=== PATIENT | male | born 1975 | race Caucasian/White ===

== ENCOUNTER → 2017-03-14 | Outpatient (CLI) | payer MEDICARE ==
[~2017-03-14] MED LIST: ANTIVERT25 MG PO; ASPI-COR81 M1 PO; BACTRIM DS 8001 TA1 PO; BENZTROPINE2 MG PO; BIAXIN500 MG PO; CITALOPRAM40 MG PO; FLEXERIL5 MG PO; HYDR25T PO; HYDROCODONE BIT1 T11 PO; LISINOPRIL20 MG PO; Lopressor25 MG PO; MEDROL DOSEPAK4 MG PO; MOTRIN800 MG PO; NEXIUM20 MG PO; NORCO 325 MG-51 TAB PO; PEN-VEE K500 MG PO; PREDNICOT20 MG PO; PREDNISONE10 MG PO; PRILOSEC40 MG PO; PROVENTIL0.09 MG/AC IH; QUETIAPINE FUM100 M2 PO; SEROQUEL100 MG PO; SYMBICORT1 AE1 INH; TOBRADEX 0.1%-0.5 ML OPH; ULTRAM50 MG PO; VICODIN ES 7501 TAB PO; VIIBRYD40 PO; ZITHROMAX500 MG PO
== END | disposition home or self-care (01) ==
LOC: CARD 13:02
DX: E11.65 Type 2 diabetes mellitus with hyperglycemia (principal); I10 Essential (primary) hypertension; J44.9 Chronic obstructive pulmonary disease, unspecified; R05 Cough; F17.200 Nicotine dependence, unspecified, uncomplicated; R06.02 Shortness of breath

== ENCOUNTER 2017-05-06 18:52 | Emergency (ER) | payer MEDICARE | END 2017-05-06 19:16 | disposition home or self-care (01) | LOC: ED 18:52 | DX: H10.32 Unspecified acute conjunctivitis, left eye (principal); F17.200 Nicotine dependence, unspecified, uncomplicated ==

== ENCOUNTER → 2017-06-14 | Outpatient (CLI) | payer MEDICARE | END | disposition home or self-care (01) | LOC: WOUNDCARE 02:19 | DX: E11.628 Type 2 diabetes mellitus with other skin complications (principal); L02.412 Cutaneous abscess of left axilla; J86.9 Pyothorax without fistula; L02.214 Cutaneous abscess of groin; L02.811 Cutaneous abscess of head [any part, except face]; I10 Essential (primary) hypertension; K21.9 Gastro-esophageal reflux disease without esophagitis; F41.9 Anxiety disorder, unspecified; G47.00 Insomnia, unspecified; F32.9 Major depressive disorder, single episode, unspecified; E66.9 Obesity, unspecified; F17.200 Nicotine dependence, unspecified, uncomplicated; Z72.89 Other problems related to lifestyle; Z86.14 Personal history of Methicillin resistant Staphylococcus aureus infection ==

== ENCOUNTER → 2017-06-28 | Outpatient (CLI) | payer MEDICARE | LOC: WOUNDCARE 03:04 | DX: L02.412 Cutaneous abscess of left axilla (principal); E66.9 Obesity, unspecified; E11.628 Type 2 diabetes mellitus with other skin complications; Z86.14 Personal history of Methicillin resistant Staphylococcus aureus infection ==

== ENCOUNTER → 2019-02-13 | Outpatient (CLI) | payer MEDICARE ==
[2019-02-13 10:24] LABS: HEMATOCRIT 61.2 % (42.0-52.0); HEMOGLOBIN 20.2 g/dl (14.0-18.0)
[2019-02-13 10:30] VITALS: BP 141/85
[2019-02-13 11:00] VITALS: BP 124/75
== END | disposition home or self-care (01) ==
LOC: PHLEB 03:23
PROVIDERS: Physician Assistant
DX: D75.1 Secondary polycythemia (principal)

== ENCOUNTER → 2021-03-08 | Outpatient (CLI) | payer MEDICARE ==
[2021-03-08 09:14] LABS: HEMATOCRIT 58.4 % (42.0-52.0)
[2021-03-08 09:39] VITALS: BP 158/88
[2021-03-08 10:03] VITALS: BP 129/85
== END | disposition home or self-care (01) ==
LOC: LAB 08:57 → PHLEB 09:00
PROVIDERS: ATTEND Physician Assistant
DX: D75.1 Secondary polycythemia (principal)

== ENCOUNTER → 2022-09-13 | Outpatient (CLI) | payer MEDICARE, MEDICAID | END | disposition home or self-care (01) | LOC: RAD 12:20 | PROVIDERS: ATTEND Nurse Practitioner Family | DX: J44.1 Chronic obstructive pulmonary disease with (acute) exacerbation (principal); I10 Essential (primary) hypertension; E11.9 Type 2 diabetes mellitus without complications; R05.9 Cough, unspecified; D75.1 Secondary polycythemia; Z87.891 Personal history of nicotine dependence ==

== ENCOUNTER → 2023-10-01 | Outpatient (CLI) | payer MEDICARE, MEDICAID ==
[2023-10-01 14:30] LABS: BASO % 0.5 % (0.0-1.0); EOS # 0.3 10*3/uL (0.0-0.4); EOS % 4.8 % (1.0-4.0); HEMATOCRIT 51.1 % (42.0-52.0); LYMPH # 2.1 10*3/uL (1.3-4.4); LYMPH % 33.1 % (27.0-41.0); MEAN CELL VOLUME 95.7 fl (80.0-94.0); MEAN CORPUSCULAR HGB 31.8 pg (27.0-31.0); MEAN CORPUSCULAR HGB CONC 33.3 g/dl (33.0-37.0); MEAN PLATELET VOLUME 8.9 fl (9.6-12.3); MONO # 0.5 10*3/uL (0.1-1.0); MONO % 8.5 % (3.0-9.0); NEUT # 3.3 10*3/uL (2.3-7.9); NEUT % 52.9 % (47.0-73.0); PLATELET COUNT AUTOMATED 215 10*3/uL (130-400); RED BLOOD COUNT 5.34 10*6/uL (4.50-5.90); RED CELL DISTRI WIDTH 12.9 % (0-14.5); WHITE BLOOD COUNT 6.3 10*3/uL (4.8-10.8)
[2023-10-01 14:51] LABS: ALKALINE PHOSPHATASE 123 U/L (46-116); CHLORIDE 107 mmol/L (98-107); CHOLESTEROL 145 mg/dL (<200); LDL CHOLESTEROL 85 mg/dL (9-159); POTASSIUM 4.2 mmol/L (3.4-5.1); TOTAL PROTEIN 6.8 gm/dL (6.0-8.0); TRIGLYCERIDES 68 mg/dl (<150)
[2023-10-01 14:53] LABS: BUN < 5 mg/dl (9-23); SGPT/ALT < 7 U/L (5-49)
== END | disposition home or self-care (01) ==
LOC: LAB 14:13
PROVIDERS: ATTEND Nurse Practitioner Family
DX: I10 Essential (primary) hypertension (principal); E11.9 Type 2 diabetes mellitus without complications; E78.5 Hyperlipidemia, unspecified; D75.1 Secondary polycythemia; Z72.0 Tobacco use

== ENCOUNTER → 2024-04-11 | Outpatient (CLI) | payer OTHER, MEDICAID ==
[2024-04-11 09:35] LABS: BASO % 0.2 % (0.0-1.0); EOS % 0.3 % (1.0-4.0); HEMATOCRIT 53.3 % (42.0-52.0); LYMPH # 1.2 10*3/uL (1.3-4.4); LYMPH % 18.9 % (27.0-41.0); MEAN CORPUSCULAR HGB 30.7 pg (27.0-31.0); MEAN CORPUSCULAR HGB CONC 32.3 g/dl (33.0-37.0); MEAN PLATELET VOLUME 9.6 fl (9.6-12.3); MONO # 0.3 10*3/uL (0.1-1.0); MONO % 5.6 % (3.0-9.0); NEUT # 4.6 10*3/uL (2.3-7.9); NEUT % 74.8 % (47.0-73.0); PLATELET COUNT AUTOMATED 214 10*3/uL (130-400); RED BLOOD COUNT 5.61 10*6/uL (4.50-5.90); RED CELL DISTRI WIDTH 13.2 % (0-14.5); WHITE BLOOD COUNT 6.1 10*3/uL (4.8-10.8)
[2024-04-11 10:03] LABS: URINE CREATININE RANDOM 84.18 mg/dL
[2024-04-11 10:46] LABS: ALKALINE PHOSPHATASE 128 U/L (46-116); BUN 9 mg/dl (9-23); CHLORIDE 106 mmol/L (98-107); CHOLESTEROL 178 mg/dL (<200); LDL CHOLESTEROL 117 mg/dL (9-159); POTASSIUM 4.6 mmol/L (3.4-5.1); TOTAL PROTEIN 7.1 gm/dL (6.0-8.0); TRIGLYCERIDES 60 mg/dl (<150)
[2024-04-11 10:47] LABS: SGPT/ALT < 7 U/L (5-49)
== END ==
LOC: LAB 08:50
PROVIDERS: ATTEND Nurse Practitioner Family
DX: I10 Essential (primary) hypertension (principal); E11.9 Type 2 diabetes mellitus without complications; D75.1 Secondary polycythemia; N52.9 Male erectile dysfunction, unspecified; E78.5 Hyperlipidemia, unspecified; Z72.0 Tobacco use

== ENCOUNTER → 2024-07-14 | Outpatient (CLI) | payer OTHER, MEDICAID ==
[2024-07-14 13:48] LABS: BASO % 0.7 % (0.0-1.0); EOS # 0.3 10*3/uL (0.0-0.4); EOS % 4.9 % (1.0-4.0); LYMPH # 2.1 10*3/uL (1.3-4.4); LYMPH % 33.8 % (27.0-41.0); MEAN CELL VOLUME 95.4 fl (80.0-94.0); MEAN CORPUSCULAR HGB 30.4 pg (27.0-31.0); MEAN CORPUSCULAR HGB CONC 31.9 g/dl (33.0-37.0); MEAN PLATELET VOLUME 9.3 fl (9.6-12.3); MONO # 0.5 10*3/uL (0.1-1.0); MONO % 8.2 % (3.0-9.0); NEUT # 3.2 10*3/uL (2.3-7.9); NEUT % 52.2 % (47.0-73.0); PLATELET COUNT AUTOMATED 196 10*3/uL (130-400); RED BLOOD COUNT 5.66 10*6/uL (4.50-5.90); RED CELL DISTRI WIDTH 13.4 % (0-14.5); WHITE BLOOD COUNT 6.1 10*3/uL (4.8-10.8)
[2024-07-14 13:59] LABS: URINE CREATININE RANDOM 143.59 mg/dL
[2024-07-14 14:32] LABS: ALKALINE PHOSPHATASE 144 U/L (46-116); BUN 7 mg/dl (9-23); CHLORIDE 102 mmol/L (98-107); CHOLESTEROL 148 mg/dL (<200); LDL CHOLESTEROL 85 mg/dL (9-159); POTASSIUM 4.3 mmol/L (3.4-5.1); SGPT/ALT 10 U/L (5-49); TRIGLYCERIDES 90 mg/dl (<150)
== END | disposition home or self-care (01) ==
LOC: LAB 13:23
PROVIDERS: ATTEND Nurse Practitioner Family
DX: I10 Essential (primary) hypertension (principal); E11.9 Type 2 diabetes mellitus without complications

== ENCOUNTER → 2024-07-16 | Outpatient (CLI) | payer OTHER, MEDICAID | END | disposition home or self-care (01) | LOC: RAD 15:10 | PROVIDERS: ATTEND Nurse Practitioner Family | DX: M47.816 Spondylosis without myelopathy or radiculopathy, lumbar region (principal); J44.1 Chronic obstructive pulmonary disease with (acute) exacerbation; M54.50 Low back pain, unspecified; Z72.0 Tobacco use; L02.91 Cutaneous abscess, unspecified ==

== ENCOUNTER → 2024-08-26 | Outpatient (CLI) | payer OTHER, MEDICAID | END | disposition home or self-care (01) | LOC: LAB 18:04 | PROVIDERS: ATTEND Nurse Practitioner Family | DX: R06.02 Shortness of breath (principal); J18.9 Pneumonia, unspecified organism; R06.2 Wheezing; Z20.822 Contact with and (suspected) exposure to COVID-19 ==

== ENCOUNTER → 2025-04-13 | Outpatient (CLI) | payer OTHER, MEDICAID ==
[2025-04-13 18:12] LABS: BASO # 0.1 10*3/uL (0.0-0.1); BASO % 0.8 % (0.0-1.0); EOS # 0.2 10*3/uL (0.0-0.4); EOS % 2.4 % (1.0-4.0); HEMATOCRIT 54.8 % (42.0-52.0); MEAN CELL VOLUME 94.5 fl (80.0-94.0); MEAN CORPUSCULAR HGB 30.5 pg (27.0-31.0); MEAN CORPUSCULAR HGB CONC 32.3 g/dl (33.0-37.0); MEAN PLATELET VOLUME 9.8 fl (9.6-12.3); MONO # 0.7 10*3/uL (0.1-1.0); MONO % 10.3 % (3.0-9.0); NEUT # 3.7 10*3/uL (2.3-7.9); NEUT % 57.8 % (47.0-73.0); PLATELET COUNT AUTOMATED 223 10*3/uL (130-400); WHITE BLOOD COUNT 6.3 10*3/uL (4.8-10.8)
[2025-04-13 18:34] LABS: ALKALINE PHOSPHATASE 114 U/L (46-116); BUN 11 mg/dl (9-23); CHLORIDE 104 mmol/L (98-107); CHOLESTEROL 177 mg/dL (<200); LDL CHOLESTEROL 120 mg/dL (9-159); POTASSIUM 4.5 mmol/L (3.4-5.1); SGPT/ALT 14 U/L (5-49); TOTAL PROTEIN 8.1 gm/dL (6.0-8.0); TRIGLYCERIDES 107 mg/dl (<150)
== END | disposition home or self-care (01) ==
LOC: LAB 13:00
PROVIDERS: ATTEND Nurse Practitioner Family
DX: I10 Essential (primary) hypertension (principal); E78.5 Hyperlipidemia, unspecified; E55.9 Vitamin D deficiency, unspecified; E11.9 Type 2 diabetes mellitus without complications

== ENCOUNTER → 2025-07-22 | Outpatient (CLI) | payer OTHER, MEDICAID ==
[2025-07-22 18:08] LABS: BASO # 0.1 10*3/uL (0.0-0.1); BASO % 0.7 % (0.0-1.0); EOS # 0.4 10*3/uL (0.0-0.4); EOS % 5.5 % (1.0-4.0); MEAN CELL VOLUME 95.3 fl (80.0-94.0); MEAN CORPUSCULAR HGB 30.4 pg (27.0-31.0); MEAN PLATELET VOLUME 10.3 fl (9.6-12.3); MONO # 0.5 10*3/uL (0.1-1.0); MONO % 7.0 % (3.0-9.0); NEUT # 3.6 10*3/uL (2.3-7.9); NEUT % 53.6 % (47.0-73.0); NUCLEATED RED BLOOD CELL 0.0 % (0.0-0.0); NUCLEATED RED BLOOD CELL 0.0 10*3/uL (0.0-0.0); PLATELET COUNT AUTOMATED 240 10*3/uL (130-400); RED CELL DISTRI WIDTH 13.3 % (0-14.5)
[2025-07-22 18:27] LABS: BUN 10 mg/dl (9-23); SGPT/ALT 11 U/L (5-49)
[2025-07-22 18:30] LABS: VITAMIN D, 25-HYDROXY 30.3 ng/mL (30-100)
== END ==
LOC: RHCWE 15:07
PROVIDERS: ATTEND Nurse Practitioner Family
DX: Z12.5 Encounter for screening for malignant neoplasm of prostate (principal); I10 Essential (primary) hypertension; J44.9 Chronic obstructive pulmonary disease, unspecified; E78.5 Hyperlipidemia, unspecified; E55.9 Vitamin D deficiency, unspecified; E11.9 Type 2 diabetes mellitus without complications; J30.2 Other seasonal allergic rhinitis